=== PATIENT | female | born 1935 | race Caucasian/White ===

== ENCOUNTER 2021-12-16 10:01 | Emergency (ER) | payer OTHER ==
[2021-12-16 10:16] VITALS: BMI 35.2
[2021-12-16] MEDS ORDERED: BEBTELOVIMAB (EUA) 175 MG/2 ML VIAL IVPUSH ONE (12:16)
[2021-12-16 13:53] VITALS: BP 136/59; PULSE 69; TEMP 98
== END 2021-12-16 15:06 | disposition home or self-care (01) ==
LOC: JCOVINFU 10:01 → JER 10:01 → JCOVINFU 15:06
PROC: 3E033GC Introduction of Other Therapeutic Substance into Peripheral Vein, Percutaneous Approach (ICD-10-PCS; principal; 2021-12-16)
DX: U07.1 COVID-19 (principal); J06.9 Acute upper respiratory infection, unspecified
CPT/HCPCS: 96374; 99284-25; C9803-CS; M0222; Q0222; U0003; U0005